=== PATIENT | female | born 1930 | race Two or more races ===

== ENCOUNTER → 2017-09-24 | Outpatient (CLI) | payer OTHER ==
--- NOTE | 2017-09-24 16:15 | Diagnostic Imaging Report ---
PROCEDURE:L-SPINE COMPLETE COMPARISON:None. INDICATIONS:SHOOTING PAIN FOR OVER TWO YEARS FINDINGS: There are 5 lumbar-type vertebral bodies. The vertebral bodies are well-aligned without evidence of spondylolisthesis. Lumbar spine vertebral body heights are maintained. There are no fractures, lytic or blastic lesions. The disc-space heights are well-maintained. L4-L5 and L5-S1 facet arthropathy. The sacroiliac joints are unremarkable. Age indeterminate compression deformity of T12 vertebral body. Vascular calcifications. Right upper quadrant surgical clips, likely related to cholecystectomy. CONCLUSION: L4-L5 and L5-S1 facet arthropathy. Age indeterminate compression deformity of T12 vertebral body. Dictated by: Norberto Wolfe M.D. on 09/24/2017 at 16:24 Electronically approved by: Norberto Wolfe M.D. on 09/24/2017 at 16:24
== END ==
LOC: RAD 15:14
DX: M54.5 Low back pain (principal)
CPT/HCPCS: 72110